=== PATIENT | male | born 1990 | race Caucasian/White ===

== ENCOUNTER 2019-04-08 17:46 | Emergency (ER) | payer MEDICAID ==
[~2019-04-08] VITALS: Ht 190.5 cm; Wt 99.8 kg
[2019-04-08 17:46] VITALS: BP_SYST 127
[2019-04-08 18:00] VITALS: BP_SYST 127
== END 2019-04-08 18:00 ==
LOC: SED 17:46
DX: Z02.89 Encounter for other administrative examinations (principal)
CPT/HCPCS: 99283

== ENCOUNTER 2021-03-15 15:13 | Emergency (ER) | payer MEDICAID ==
[~2021-03-15] VITALS: Ht 190.5 cm; Wt 102.1 kg
[2021-03-15 15:25] VITALS: BP_SYST 103
--- NOTE | 2021-03-15 15:25 | NUR ---
Pt to [facility] for evaluation.
--- NOTE | 2021-03-15 15:30 | NUR ---
Pt BIB law enforcement for medical clearance. Pt requires medical examination prior to booking. Pt denies having any current compaints. Pt has stable v/s.
--- NOTE | 2021-03-15 15:50 | NUR ---
DR NICOLE AT CHAIRSIDE FOR EVALUATION
--- NOTE | 2021-03-15 16:24 | NUR ---
Patient/Officer given written and verbal discharge instructions and verbalizes understanding. Dr. Keith ESCAMILLA MD discussed with patient the results and treatment provided. Patient in stable condition. ID arm band removed. Pain Scale 0/10. Opportunity for questions provided and answered. Pt released to law enforcement with medical clearance to book.
[2021-03-15 16:25] VITALS: BP_SYST 103
== END 2021-03-15 16:24 ==
LOC: SED 15:13
DX: F15.10 Other stimulant abuse, uncomplicated (principal); F32.9 Major depressive disorder, single episode, unspecified; F41.9 Anxiety disorder, unspecified; Z88.8 Allergy status to other drugs, medicaments and biological substances
CPT/HCPCS: 99283

== ENCOUNTER 2021-09-28 10:42 | Emergency (ER) | payer MEDICAID ==
[~2021-09-28] VITALS: Ht 190.5 cm; Wt 99.8 kg
[2021-09-28 10:42] VITALS: BP_SYST 108
[2021-09-28 13:03] VITALS: BP_SYST 147
== END 2021-09-28 13:04 ==
LOC: SED 10:42
DX: Z02.79 Encounter for issue of other medical certificate (principal); Z88.8 Allergy status to other drugs, medicaments and biological substances
CPT/HCPCS: 99283